=== PATIENT | male | born 1955 | race Asian ===

== ENCOUNTER 2020-03-06 13:58 | Inpatient (IN) | payer MEDICAID, OTHER ==
[~2020-03-06] VITALS: Ht 185.4 cm; Wt 55.2 kg
[~2020-03-06 13:58] MED LIST: LISI5TAB7 PO; METO-93 PO; RIVA20TA PO
--- NOTE | 2020-03-06 14:25 | NUR ---
pt presents to ED seeking eval of chronic venous stasis lesions to bilateral LE, states these have been present for years, pt has chronic sob, states this is at baseline today. pt breathing with pursed lips, regular, mildly labored. pt's only complaint is bilateral leg pain. pt is a&o, able to speak in full sentences without taking breath. all monitors in place, pt is in afib rate 140-150, no pvcs noted. pt states "I've had afib for 4-5 years now, I stopped taking medicine for it 2 or 3 years ago, I don't have insurance." Pt seen and examined by [facility] Ch, bertha and EDTA for PIV start and labwork. call light in reach.
[2020-03-06] MEDS ORDERED: MORPHINE SULFATE 4 MG/ML, 1ML IVPush ONE (14:30)
[2020-03-06] MEDS ORDERED: SODIUM CHLORIDE 0.9% 1,000ML IVBOLUS ONE (14:30)
[2020-03-06] MEDS ORDERED: SODIUM CHLORIDE FLUSH 10ML SYR IVF ONE (14:30)
[2020-03-06] MEDS ORDERED: FUROSEMIDE 40 MG/4 ML IVPush ONE (14:30)
--- NOTE | 2020-03-06 14:34 | NUR ---
pt instructed to provide clean catch ua, pt refusing to attempt, stating "I just went before I got here." this RN will continue to prompt.
[2020-03-06] MEDS ORDERED: MORPHINE SULFATE 4 MG/ML, 1ML ONE (14:39)
[2020-03-06] MEDS ORDERED: FUROSEMIDE 40 MG/4 ML ONE (14:39)
[2020-03-06] MEDS ORDERED: DILTIAZEM 5 MG/ML, 5ML ONE ×2 (14:39→15:26)
[2020-03-06] MEDS ORDERED: GABA300C PO (14:41)
[2020-03-06] MEDS ORDERED: IBUP-1902 PO (14:41)
[2020-03-06] MEDS ORDERED: ASPI-515 PO (14:41)
[2020-03-06 14:49] LABS: BASOPHILS # (AUTO) 0.01 x10^3/uL (0-0.1); BASOPHILS % (AUTO) 0 % (0-1); EOSINOPHILS # (AUTO) 0.01 x10^3/uL (0-0.4); EOSINOPHILS % (AUTO) 0 % (1-7); LYMPHOCYTES # (AUTO) 0.81 x10^3/uL (1-3.4); LYMPHOCYTES % (AUTO) 11 % (22-44); MD NO; MEAN CORPUSCULAR HEMOGLOBIN 33.9 pg (27.5-34.5); MEAN CORPUSCULAR HGB CONC 33.2 g/dL (33.2-36.2); MEAN CORPUSCULAR VOLUME 102.4 fL (81-97); MEAN PLATELET VOLUME 6.5 fL (7.4-10.4); MONOCYTES # (AUTO) 0.47 x10^3/uL (0.2-0.8); MONOCYTES % (AUTO) 7 % (2-9); NEUTROPHILS # (AUTO) 5.94 x10^3/uL (1.8-6.8); NEUTROPHILS % (AUTO) 82 % (42-75); PLATELET COUNT 197 x10^3/uL (130-400); RED BLOOD COUNT 5.41 x10^6/uL (4.38-5.82); RED CELL DISTRIBUTION WIDTH 13.9 % (9.4-14.8)
[2020-03-06 15:00] LABS: ALBUMIN 3.2 g/dL (3.4-5.0); ANION GAP 8 mmol/L (5-15); CALCIUM 8.8 mg/dL (8.5-10.1); CHLORIDE 106 mmol/L (98-107)
[2020-03-06] MEDS ORDERED: DILTIAZEM 5 MG/ML, 5ML IVPush ONE (15:00)
--- NOTE | 2020-03-06 15:00 | NUR ---
REPORT GIVEN TO KENNY MAURICE AT BEDSIDE. PT A&O, RESPS EVEN AND UNLABORED. DILTIAZEM PUSHED SLOWLY OVER 5 MIN. PT REMAINS IN AFIB RATE 115-120, NO ECTOPY NOTED. PT'S RESPS EVEN AND UNLABORED, ABLE TO SPEAK IN FULL SENTENCES WITHOUT TAKING A BREATH. AWAITING LAB AND CXR RESULTS AT THIS TIME, PT REMINDED TO PROVIDE URINE WHEN ABLE.
--- NOTE | 2020-03-06 15:01 | NUR ---
REPORT FROM KENNY NORTON. PT CARE RESPONSIBILITIES ASSUMED. PT UPDATED ON PLAN OF CARE. VERBALIZES UNDERSTANDING. DENIES ANY NEEDS OR CONCERNS, CALL LIGHT IN REACH.
[2020-03-06 15:05] LABS: ALANINE AMINOTRANSFERASE 32 U/L (12-78); ALKALINE PHOSPHATASE 65 U/L (45-117); BILIRUBIN,TOTAL 1.1 mg/dL (0.2-1.0); CREATININE 1.04 mg/dL (0.7-1.3); TOTAL PROTEIN 7.9 g/dL (6.4-8.2); TROPONIN I 0.095 ng/mL (0.000-0.045)
[2020-03-06 15:16] LABS: INTERNATIONAL NORMALIZED RATIO 1.02 (0.93-1.1); PROTHROMBIN TIME 10.5 Seconds (9.6-11.5)
[2020-03-06] MEDS ORDERED: DILTIAZEM 5 MG/ML, 5ML IVPush STA (15:18)
[2020-03-06] MEDS ORDERED: VANCOMYCIN PER PHARMACY MC PRN ×2 (15:30→18:00)
[2020-03-06] MEDS ORDERED: ASPIRIN 81 MG TABLET CHEW PO ONE (15:30)
[2020-03-06] MEDS ORDERED: VANCOMYCIN 2,500 MG in SODIUM CHLORIDE 0.9% 500 ML IV ONE (15:30)
[2020-03-06 15:35] LABS: MICROSCOPIC AUTO
[2020-03-06] MEDS ORDERED: ASPIRIN 81 MG TABLET CHEW ONE (15:39)
--- NOTE | 2020-03-06 15:40 | NUR ---
PT UP TO BEDSIDE FOR URINAL USE. REQUIRES ONLY SETUP ASSISTANCE. DENIES ANY FURTHER NEEDS AT THIS TIME, CALL LIGHT IN REACH.
[2020-03-06] MEDS: DILTIAZEM 125 MG in SODIUM CHLORIDE 0.9% 100 ML IV SCH (15:58)
--- NOTE | 2020-03-06 16:20 | NUR ---
PT READY AND AWAITING TRANSPORT AT THIS TIME. REPORT CALLED TO KENNY WILKINSON.
[2020-03-06 16:46] VITALS: BP 146/97
[2020-03-06] MEDS: morphine SULFATE 10 MG/ML, 1ML IVPush PRN (17:30)
[2020-03-06] MEDS ORDERED: hydrALAzine 20 MG/ML, 1ML IVPush PRN (17:30)
[2020-03-06] MEDS ORDERED: PROMETHAZINE 25 MG/ML, 1ML IM PRN (17:30)
[2020-03-06] MEDS ORDERED: ONDANSETRON 2MG/ML, 2ML IVPush PRN (17:30)
[2020-03-06] MEDS ORDERED: ACETAMINOPHEN 325 MG TABLET PO PRN (17:30)
[2020-03-06] MEDS ORDERED: ONDANSETRON ODT 4 MG PO PRN (17:30)
[2020-03-06] MEDS ORDERED: BISACODYL 10 MG SUPP PR PRN (17:30)
[2020-03-06 18:09] LABS: FREE T4 (FREE THYROXINE) 1.06 ng/dL (0.76-1.46)
[2020-03-06] MEDS ORDERED: PHARMACOKINETIC CONSULTATION MC ONE (18:30)
[2020-03-06] MEDS ORDERED: PHARMACOKINETIC MONITORING MC PRN (18:30)
[2020-03-06] MEDS: AMPICILLIN/SULBACTAM 3 GM in SODIUM CHLORIDE 0.9% 100 ML IV SCH (20:20)
[2020-03-06] MEDS: OXYcodone IR 5MG TABLET PO PRN ×2 (20:26→20:57)
[2020-03-06] MEDS ORDERED: ALBUTEROL HFA 90 MCG/SPRAY INH PRN (21:30)
[2020-03-06 21:37] VITALS: BP 150/108
[2020-03-07] VITALS (7 sets, daily range): BP systolic 116–163; BP diastolic 68–98
[2020-03-07] MEDS: OXYcodone IR 5MG TABLET PO PRN ×5 (01:42→20:06)
[2020-03-07] MEDS: AMPICILLIN/SULBACTAM 3 GM in SODIUM CHLORIDE 0.9% 100 ML IV SCH ×4 (01:44→21:09)
[2020-03-07] MEDS: DILTIAZEM 125 MG in SODIUM CHLORIDE 0.9% 100 ML IV SCH ×2 (03:03→16:56)
[2020-03-07 04:54] LABS: BASOPHILS # (AUTO) 0.03 x10^3/uL (0-0.1); BASOPHILS % (AUTO) 0 % (0-1); EOSINOPHILS # (AUTO) 0.01 x10^3/uL (0-0.4); EOSINOPHILS % (AUTO) 0 % (1-7); LYMPHOCYTES # (AUTO) 0.95 x10^3/uL (1-3.4); LYMPHOCYTES % (AUTO) 10 % (22-44); MD NO; MEAN CORPUSCULAR HEMOGLOBIN 33.9 pg (27.5-34.5); MEAN CORPUSCULAR HGB CONC 32.8 g/dL (33.2-36.2); MEAN CORPUSCULAR VOLUME 103.5 fL (81-97); MEAN PLATELET VOLUME 6.8 fL (7.4-10.4); MONOCYTES # (AUTO) 1.06 x10^3/uL (0.2-0.8); MONOCYTES % (AUTO) 11 % (2-9); NEUTROPHILS # (AUTO) 7.54 x10^3/uL (1.8-6.8); NEUTROPHILS % (AUTO) 79 % (42-75); PLATELET COUNT 176 x10^3/uL (130-400); RED BLOOD COUNT 5.08 x10^6/uL (4.38-5.82); RED CELL DISTRIBUTION WIDTH 13.9 % (9.4-14.8)
[2020-03-07] MEDS ORDERED: HEPARIN 5,000 UNITS/ML, 1ML IV ONE (05:00)
[2020-03-07 05:11] LABS: CALCIUM 8.4 mg/dL (8.5-10.1); CHLORIDE 100 mmol/L (98-107)
[2020-03-07 05:15] LABS: ALANINE AMINOTRANSFERASE 29 U/L (12-78); ALBUMIN 3.2 g/dL (3.4-5.0); ANION GAP 10 mmol/L (5-15); CHOLESTEROL, TOTAL 191 mg/dL (140-239); CREATININE 0.88 mg/dL (0.7-1.3); TOTAL PROTEIN 7.6 g/dL (6.4-8.2); TRIGLYCERIDES 81 mg/dL (50-200); VLDL CHOLESTEROL 16 mg/dL (0-25)
[2020-03-07 05:17] LABS: ALKALINE PHOSPHATASE 60 U/L (45-117); BILIRUBIN,TOTAL 1.8 mg/dL (0.2-1.0); CHOL/HDL RATIO 2.6; HDL CHOL % 38 % (26-37); HDL CHOLESTEROL (DIRECT) 73 mg/dL (40-60); LDL CHOLESTEROL,CALCULATED 102 mg/dL (54-169); LDL/HDL RATIO 1.4 (0.5-3.0)
[2020-03-07] MEDS: HEPARIN 25,000 UNITS/250ML PMX 250 ML IV PRN (06:18)
[2020-03-07] MEDS: morphine SULFATE 10 MG/ML, 1ML IVPush PRN (08:26)
[2020-03-07] MEDS ORDERED: FUROSEMIDE 20 MG/2 ML IV ONE (09:00)
[2020-03-07] MEDS ORDERED: ASPIRIN 325 MG TABLET EC PO SCH (09:00)
[2020-03-07] MEDS: VANCOMYCIN 2,000 MG in SODIUM CHLORIDE 0.9% 500 ML IV SCH (09:56)
[2020-03-07] MEDS ORDERED: MAGNESIUM SULFATE PMX 2GM/50ML 50 ML IV ONE (10:30)
[2020-03-07] MEDS: FENTANYL PF 100 MCG/2ML IVPush PRN ×2 (11:21→15:39)
[2020-03-07] MEDS: FUROSEMIDE 20 MG/2 ML IV SCH (14:59)
[2020-03-07] MEDS: METOPROLOL TARTRATE 25 MG TAB PO SCH (16:56)
[2020-03-07] MEDS: HEPARIN 5,000 UNITS/ML, 1ML IV PRN (21:07)
[2020-03-08] MEDS: FENTANYL PF 100 MCG/2ML IVPush PRN (01:43)
[2020-03-08] MEDS: HEPARIN 25,000 UNITS/250ML PMX 250 ML IV PRN (02:34)
[2020-03-08] MEDS: OXYcodone IR 5MG TABLET PO PRN ×3 (02:54→17:04)
[2020-03-08] MEDS: AMPICILLIN/SULBACTAM 3 GM in SODIUM CHLORIDE 0.9% 100 ML IV SCH ×4 (02:59→21:25)
[2020-03-08 03:41] LABS: BASOPHILS # (AUTO) 0.03 x10^3/uL (0-0.1); BASOPHILS % (AUTO) 1 % (0-1); EOSINOPHILS # (AUTO) 0.02 x10^3/uL (0-0.4); EOSINOPHILS % (AUTO) 0 % (1-7); LYMPHOCYTES # (AUTO) 0.74 x10^3/uL (1-3.4); LYMPHOCYTES % (AUTO) 10 % (22-44); MD NO; MEAN CORPUSCULAR HEMOGLOBIN 34.5 pg (27.5-34.5); MEAN CORPUSCULAR HGB CONC 33.6 g/dL (33.2-36.2); MEAN CORPUSCULAR VOLUME 102.9 fL (81-97); MEAN PLATELET VOLUME 6.8 fL (7.4-10.4); MONOCYTES # (AUTO) 0.75 x10^3/uL (0.2-0.8); MONOCYTES % (AUTO) 10 % (2-9); NEUTROPHILS # (AUTO) 6.04 x10^3/uL (1.8-6.8); NEUTROPHILS % (AUTO) 80 % (42-75); PLATELET COUNT 172 x10^3/uL (130-400); RED BLOOD COUNT 4.83 x10^6/uL (4.38-5.82); RED CELL DISTRIBUTION WIDTH 13.8 % (9.4-14.8)
[2020-03-08 03:43] LABS: ANION GAP 10 mmol/L (5-15); CALCIUM 8.8 mg/dL (8.5-10.1); CHLORIDE 98 mmol/L (98-107); CREATININE 1.04 mg/dL (0.7-1.3)
[2020-03-08] MEDS: VANCOMYCIN 2,000 MG in SODIUM CHLORIDE 0.9% 500 ML IV SCH ×2 (04:09→22:57)
[2020-03-08] MEDS: DILTIAZEM 125 MG in SODIUM CHLORIDE 0.9% 100 ML IV SCH (05:29)
[2020-03-08] MEDS: METOPROLOL TARTRATE 25 MG TAB PO SCH ×2 (05:35→16:59)
[2020-03-08 06:42] VITALS: BP 110/74
[2020-03-08] MEDS: FUROSEMIDE 20 MG/2 ML IV SCH (09:26)
[2020-03-08] MEDS: DILTIAZEM 240 MG CAP.ER.24H PO SCH (09:27)
[2020-03-08] MEDS: GABAPENTIN 100 MG CAPSULE PO SCH ×3 (09:27→21:26)
[2020-03-08] MEDS: LISINOPRIL 5 MG TABLET PO SCH (09:31)
[2020-03-08] MEDS: NICOTINE 7 MG/24 HR PATCH.TD24 TD SCH (11:25)
[2020-03-08] MEDS: DOCUSATE 100 MG CAPSULE PO PRN (11:26)
[2020-03-08] MEDS ORDERED: HYDROmorphone 1 MG/ML, 1ML INJ IV PRN (11:30)
[2020-03-08 12:18] VITALS: BP 127/84
[2020-03-08] MEDS: HEPARIN 5,000 UNITS/ML, 1ML IV PRN ×2 (13:22→20:15)
[2020-03-08] MEDS ORDERED: FENTANYL PF 100 MCG/2ML ONE (14:19)
[2020-03-08] MEDS ORDERED: NALOXONE 1 MG/ML, 2ML ONE (14:19)
[2020-03-08] MEDS ORDERED: FLUMAZENIL 0.1 MG/1 ML, 5ML ONE (14:19)
[2020-03-08] MEDS ORDERED: MIDAZOLAM 1 MG/ML, 5ML ONE (14:19)
[2020-03-08 16:50] VITALS: BP 122/82
[2020-03-08 18:46] VITALS: BP 101/67
[2020-03-09] MEDS: OXYcodone IR 5MG TABLET PO PRN ×3 (00:27→20:06)
[2020-03-09] MEDS: HEPARIN 25,000 UNITS/250ML PMX 250 ML IV PRN (01:37)
[2020-03-09 03:17] VITALS: BP 122/73
[2020-03-09] MEDS: HEPARIN 5,000 UNITS/ML, 1ML IV PRN (03:26)
[2020-03-09] MEDS: AMPICILLIN/SULBACTAM 3 GM in SODIUM CHLORIDE 0.9% 100 ML IV SCH ×3 (05:02→19:22)
[2020-03-09 05:21] LABS: BASOPHILS # (AUTO) 0.02 x10^3/uL (0-0.1); BASOPHILS % (AUTO) 0 % (0-1); EOSINOPHILS # (AUTO) 0.08 x10^3/uL (0-0.4); EOSINOPHILS % (AUTO) 1 % (1-7); LYMPHOCYTES # (AUTO) 0.99 x10^3/uL (1-3.4); LYMPHOCYTES % (AUTO) 13 % (22-44); MD NO; MEAN CORPUSCULAR HEMOGLOBIN 34.1 pg (27.5-34.5); MEAN CORPUSCULAR HGB CONC 32.6 g/dL (33.2-36.2); MEAN CORPUSCULAR VOLUME 104.7 fL (81-97); MEAN PLATELET VOLUME 6.9 fL (7.4-10.4); MONOCYTES # (AUTO) 1.07 x10^3/uL (0.2-0.8); MONOCYTES % (AUTO) 14 % (2-9); NEUTROPHILS # (AUTO) 5.29 x10^3/uL (1.8-6.8); NEUTROPHILS % (AUTO) 71 % (42-75); PLATELET COUNT 160 x10^3/uL (130-400); RED BLOOD COUNT 4.52 x10^6/uL (4.38-5.82); RED CELL DISTRIBUTION WIDTH 13.5 % (9.4-14.8)
[2020-03-09] MEDS: FENTANYL PF 100 MCG/2ML IVPush PRN (05:32)
[2020-03-09 05:33] LABS: ANION GAP 2 mmol/L (5-15); CALCIUM 9.1 mg/dL (8.5-10.1); CHLORIDE 102 mmol/L (98-107)
[2020-03-09 05:36] LABS: CREATININE 0.85 mg/dL (0.7-1.3)
[2020-03-09] MEDS: METOPROLOL TARTRATE 25 MG TAB PO SCH (06:08)
[2020-03-09 07:50] VITALS: BP 107/75
[2020-03-09] MEDS: DILTIAZEM 240 MG CAP.ER.24H PO SCH (08:22)
[2020-03-09] MEDS: GABAPENTIN 100 MG CAPSULE PO SCH ×3 (08:22→20:06)
[2020-03-09] MEDS: FUROSEMIDE 20 MG/2 ML IV SCH (08:22)
[2020-03-09] MEDS: LISINOPRIL 5 MG TABLET PO SCH (08:23)
[2020-03-09] MEDS: NICOTINE 7 MG/24 HR PATCH.TD24 TD SCH (11:00)
[2020-03-09] MEDS: APIXABAN 5 MG TABLET PO SCH ×2 (11:35→20:06)
[2020-03-09] MEDS: DOCUSATE 100 MG CAPSULE PO PRN (11:35)
[2020-03-09 13:56] VITALS: BP 134/85
[2020-03-09] MEDS: VANCOMYCIN 2,000 MG in SODIUM CHLORIDE 0.9% 500 ML IV SCH (16:14)
[2020-03-09] MEDS: METOPROLOL TARTRATE 50 MG TAB PO SCH (17:45)
[2020-03-09 20:01] VITALS: BP 98/70
[2020-03-09] MEDS: POLYETHYLENE GLYCOL 17 GM PACKET PO PRN (20:06)
[2020-03-10 00:32] VITALS: BP 114/84
[2020-03-10] MEDS: OXYcodone IR 5MG TABLET PO PRN ×4 (00:36→21:39)
[2020-03-10] MEDS: AMPICILLIN/SULBACTAM 3 GM in SODIUM CHLORIDE 0.9% 100 ML IV SCH ×3 (01:30→13:03)
[2020-03-10] MEDS: FENTANYL PF 100 MCG/2ML IVPush PRN (02:48)
[2020-03-10] MEDS: METOPROLOL TARTRATE 50 MG TAB PO SCH ×2 (05:41→17:34)
[2020-03-10 06:47] VITALS: BP 107/76
[2020-03-10] MEDS: LISINOPRIL 5 MG TABLET PO SCH (08:41)
[2020-03-10] MEDS: GABAPENTIN 100 MG CAPSULE PO SCH ×3 (08:41→21:29)
[2020-03-10] MEDS: DOCUSATE 100 MG CAPSULE PO PRN (08:41)
[2020-03-10] MEDS: APIXABAN 5 MG TABLET PO SCH ×2 (08:42→21:29)
[2020-03-10] MEDS ORDERED: FUROSEMIDE 40 MG TABLET PO SCH (09:00)
[2020-03-10] MEDS: VANCOMYCIN 2,000 MG in SODIUM CHLORIDE 0.9% 500 ML IV SCH (09:23)
[2020-03-10] MEDS: NICOTINE 7 MG/24 HR PATCH.TD24 TD SCH (09:44)
[2020-03-10 12:56] VITALS: BP 127/78
[2020-03-10] MEDS: PIPERACILLIN/TAZO/PMX 3.375GM 50 ML IV SCH ×2 (16:57→21:30)
[2020-03-10] MEDS: POLYETHYLENE GLYCOL 17 GM PACKET PO PRN (18:24)
[2020-03-10 19:09] VITALS: BP 101/73
[2020-03-11] MEDS ORDERED: MELATONIN 5 MG TABLET PO PRN
[2020-03-11 01:18] VITALS: BP 109/80
[2020-03-11] MEDS: PIPERACILLIN/TAZO/PMX 3.375GM 50 ML IV SCH ×4 (03:40→22:14)
[2020-03-11] MEDS: OXYcodone IR 5MG TABLET PO PRN ×3 (03:40→17:43)
[2020-03-11] MEDS: VANCOMYCIN 2,000 MG in SODIUM CHLORIDE 0.9% 500 ML IV SCH (04:39)
[2020-03-11] MEDS: METOPROLOL TARTRATE 50 MG TAB PO SCH ×2 (04:42→17:39)
[2020-03-11 04:43] VITALS: BP 110/78
[2020-03-11 06:54] LABS: BASOPHILS # (AUTO) 0.02 x10^3/uL (0-0.1); BASOPHILS % (AUTO) 0 % (0-1); EOSINOPHILS # (AUTO) 0.07 x10^3/uL (0-0.4); EOSINOPHILS % (AUTO) 1 % (1-7); LYMPHOCYTES # (AUTO) 0.83 x10^3/uL (1-3.4); LYMPHOCYTES % (AUTO) 13 % (22-44); MD NO; MEAN CORPUSCULAR HEMOGLOBIN 34.5 pg (27.5-34.5); MEAN CORPUSCULAR HGB CONC 33.2 g/dL (33.2-36.2); MEAN CORPUSCULAR VOLUME 103.8 fL (81-97); MEAN PLATELET VOLUME 6.9 fL (7.4-10.4); MONOCYTES # (AUTO) 0.99 x10^3/uL (0.2-0.8); MONOCYTES % (AUTO) 15 % (2-9); NEUTROPHILS # (AUTO) 4.74 x10^3/uL (1.8-6.8); NEUTROPHILS % (AUTO) 71 % (42-75); PLATELET COUNT 175 x10^3/uL (130-400); RED BLOOD COUNT 4.72 x10^6/uL (4.38-5.82); RED CELL DISTRIBUTION WIDTH 13.4 % (9.4-14.8)
[2020-03-11 07:09] LABS: ANION GAP 7 mmol/L (5-15); CHLORIDE 98 mmol/L (98-107)
[2020-03-11 07:12] LABS: CREATININE 1.14 mg/dL (0.7-1.3)
[2020-03-11 07:13] VITALS: BP 104/68
[2020-03-11] MEDS ORDERED: MORPHINE SULFATE 4 MG/ML, 1ML IVPush PRN (08:00)
[2020-03-11] MEDS: GABAPENTIN 100 MG CAPSULE PO SCH ×3 (10:14→22:12)
[2020-03-11] MEDS: APIXABAN 5 MG TABLET PO SCH ×2 (10:14→22:13)
[2020-03-11] MEDS: FUROSEMIDE 20 MG TABLET PO SCH (10:14)
[2020-03-11] MEDS: LISINOPRIL 5 MG TABLET PO SCH (10:14)
[2020-03-11] MEDS: DOCUSATE 100 MG CAPSULE PO PRN (10:14)
[2020-03-11] MEDS: NICOTINE 7 MG/24 HR PATCH.TD24 TD SCH (10:30)
[2020-03-11 12:22] VITALS: BP 119/82
[2020-03-11 19:38] VITALS: BP 108/77
[2020-03-12 02:28] VITALS: BP 111/63
[2020-03-12] MEDS: OXYcodone IR 5MG TABLET PO PRN (03:12)
[2020-03-12] MEDS: PIPERACILLIN/TAZO/PMX 3.375GM 50 ML IV SCH ×2 (03:48→10:00)
[2020-03-12] MEDS ORDERED: VANCOMYCIN 2,000 MG in SODIUM CHLORIDE 0.9% 500 ML IV SCH (04:00)
[2020-03-12] MEDS: METOPROLOL TARTRATE 50 MG TAB PO SCH (05:25)
[2020-03-12 05:30] VITALS: BP 142/83
[2020-03-12 07:08] VITALS: BP 125/89
[2020-03-12] MEDS ORDERED: OXYC5TAB3 PO (08:24)
[2020-03-12] MEDS ORDERED: LEVO750T6 PO (08:24)
[2020-03-12] MEDS ORDERED: LISI5TAB7 PO (08:24)
[2020-03-12] MEDS ORDERED: FURO20TA3 PO (08:24)
[2020-03-12] MEDS ORDERED: GABA300C PO (08:24)
[2020-03-12] MEDS ORDERED: APIX5TAB PO (08:24)
[2020-03-12] MEDS ORDERED: ALBU18HF INH (08:24)
[2020-03-12] MEDS ORDERED: ASPI-515 PO (08:24)
[2020-03-12] MEDS ORDERED: METO50TA82 PO (08:24)
[2020-03-12] MEDS: NICOTINE 7 MG/24 HR PATCH.TD24 TD SCH (10:22)
[2020-03-12] MEDS: FUROSEMIDE 20 MG TABLET PO SCH (10:22)
[2020-03-12] MEDS: LISINOPRIL 5 MG TABLET PO SCH (10:22)
[2020-03-12] MEDS: APIXABAN 5 MG TABLET PO SCH (10:22)
[2020-03-12] MEDS: GABAPENTIN 100 MG CAPSULE PO SCH (10:22)
== END 2020-03-12 11:14 | disposition home or self-care (01) | DRG 602 ==
LOC: ED 15:14 → EDIP 15:32 → 5SO 16:51 → DCLOUNGE 03-12 10:55
PROVIDERS: ADMIT Hospitalist; ATTEND Hospitalist
DX: L03.116 Cellulitis of left lower limb (principal); J96.01 Acute respiratory failure with hypoxia; I50.23 Acute on chronic systolic (congestive) heart failure; I42.9 Cardiomyopathy, unspecified; I48.20 Chronic atrial fibrillation, unspecified; L97.229 Non-pressure chronic ulcer of left calf with unspecified severity; Z79.01 Long term (current) use of anticoagulants; L03.115 Cellulitis of right lower limb; Z87.891 Personal history of nicotine dependence; Z91.19 Patient's noncompliance with other medical treatment and regimen; F12.10 Cannabis abuse, uncomplicated; I34.0 Nonrheumatic mitral (valve) insufficiency; I87.2 Venous insufficiency (chronic) (peripheral); M71.21 Synovial cyst of popliteal space [Baker], right knee
CPT/HCPCS: 36415; 71045; 80048; 80053; 80061; 80202; 81001; 83036; 83605; 83735; 83880; 84145; 84439; 84443; 84484; 85025; 85520; 85610; 87040; 87070; 87077; 87086; 87147; 87186; 87205; 93005; 93306; 93922; 93970; 96361; 96374; 96375; 99291; G0378; J0295; J1644; J1940; J2250; J2543; J3010; J3370; J2270; J2310; J3475; J7030; J7040

== ENCOUNTER → 2020-03-18 | Outpatient (CLI) | payer OTHER ==
[~2020-03-18] MED LIST changes: +ALBU18HF INH; +APIX5TAB PO; +ASPI-515 PO; +FURO20TA3 PO; +GABA300C PO; +IBUP-1902 PO; +LEVO750T6 PO; +METO50TA82 PO; +OXYC5TAB3 PO
== END | disposition home or self-care (01) ==
LOC: WOUND 08:37
PROVIDERS: ATTEND Family Medicine
DX: I87.313 Chronic venous hypertension (idiopathic) with ulcer of bilateral lower extremity (principal); L97.822 Non-pressure chronic ulcer of other part of left lower leg with fat layer exposed; L97.812 Non-pressure chronic ulcer of other part of right lower leg with fat layer exposed; L97.105 Non-pressure chronic ulcer of unspecified thigh with muscle involvement without evidence of necrosis; I50.23 Acute on chronic systolic (congestive) heart failure; I42.9 Cardiomyopathy, unspecified; I48.91 Unspecified atrial fibrillation; I87.2 Venous insufficiency (chronic) (peripheral); K21.9 Gastro-esophageal reflux disease without esophagitis; I42.2 Other hypertrophic cardiomyopathy; F17.200 Nicotine dependence, unspecified, uncomplicated; F12.10 Cannabis abuse, uncomplicated; Z79.01 Long term (current) use of anticoagulants
CPT/HCPCS: 11042; 11045; 99215

== ENCOUNTER → 2020-03-25 | Outpatient (CLI) | payer OTHER | END | disposition home or self-care (01) | LOC: WOUND 08:16 | PROVIDERS: ATTEND Family Medicine | DX: I87.313 Chronic venous hypertension (idiopathic) with ulcer of bilateral lower extremity (principal); L97.822 Non-pressure chronic ulcer of other part of left lower leg with fat layer exposed; L97.812 Non-pressure chronic ulcer of other part of right lower leg with fat layer exposed; L97.105 Non-pressure chronic ulcer of unspecified thigh with muscle involvement without evidence of necrosis; I11.0 Hypertensive heart disease with heart failure; I50.23 Acute on chronic systolic (congestive) heart failure; I48.20 Chronic atrial fibrillation, unspecified; K21.9 Gastro-esophageal reflux disease without esophagitis; I42.2 Other hypertrophic cardiomyopathy; F17.200 Nicotine dependence, unspecified, uncomplicated; F12.10 Cannabis abuse, uncomplicated; Z79.01 Long term (current) use of anticoagulants | CPT/HCPCS: 97597; 97598 ==

== ENCOUNTER → 2020-04-01 | Outpatient (CLI) | payer OTHER | END | disposition home or self-care (01) | LOC: WOUND 08:27 | PROVIDERS: ATTEND Family Medicine | DX: I87.333 Chronic venous hypertension (idiopathic) with ulcer and inflammation of bilateral lower extremity (principal); L97.812 Non-pressure chronic ulcer of other part of right lower leg with fat layer exposed; L97.822 Non-pressure chronic ulcer of other part of left lower leg with fat layer exposed; L97.105 Non-pressure chronic ulcer of unspecified thigh with muscle involvement without evidence of necrosis; K21.9 Gastro-esophageal reflux disease without esophagitis; I42.2 Other hypertrophic cardiomyopathy; I11.0 Hypertensive heart disease with heart failure; I50.33 Acute on chronic diastolic (congestive) heart failure; I48.20 Chronic atrial fibrillation, unspecified; F17.200 Nicotine dependence, unspecified, uncomplicated; Z79.01 Long term (current) use of anticoagulants | CPT/HCPCS: 97597; 97598 ==

== ENCOUNTER → 2020-04-08 | Outpatient (CLI) | payer OTHER | END | disposition home or self-care (01) | LOC: WOUND 08:35 | PROVIDERS: ATTEND Family Medicine | DX: I87.333 Chronic venous hypertension (idiopathic) with ulcer and inflammation of bilateral lower extremity (principal); L97.812 Non-pressure chronic ulcer of other part of right lower leg with fat layer exposed; L97.822 Non-pressure chronic ulcer of other part of left lower leg with fat layer exposed; L97.105 Non-pressure chronic ulcer of unspecified thigh with muscle involvement without evidence of necrosis; I42.2 Other hypertrophic cardiomyopathy; K21.9 Gastro-esophageal reflux disease without esophagitis; I11.0 Hypertensive heart disease with heart failure; I50.33 Acute on chronic diastolic (congestive) heart failure; I48.20 Chronic atrial fibrillation, unspecified; F17.200 Nicotine dependence, unspecified, uncomplicated; Z79.01 Long term (current) use of anticoagulants | CPT/HCPCS: 97597; 97598 ==

== ENCOUNTER → 2020-04-22 | Outpatient (CLI) | payer OTHER | END | disposition home or self-care (01) | LOC: WOUND 08:19 | PROVIDERS: ATTEND Family Medicine | DX: I87.333 Chronic venous hypertension (idiopathic) with ulcer and inflammation of bilateral lower extremity (principal); L97.812 Non-pressure chronic ulcer of other part of right lower leg with fat layer exposed; L97.822 Non-pressure chronic ulcer of other part of left lower leg with fat layer exposed; L97.105 Non-pressure chronic ulcer of unspecified thigh with muscle involvement without evidence of necrosis; I42.2 Other hypertrophic cardiomyopathy; K21.9 Gastro-esophageal reflux disease without esophagitis; I11.0 Hypertensive heart disease with heart failure; I50.43 Acute on chronic combined systolic (congestive) and diastolic (congestive) heart failure; I48.20 Chronic atrial fibrillation, unspecified; F17.200 Nicotine dependence, unspecified, uncomplicated; Z79.01 Long term (current) use of anticoagulants; Z79.82 Long term (current) use of aspirin | CPT/HCPCS: 97597; 97598 ==

== ENCOUNTER 2020-04-29 09:06 | Outpatient (CLI) | payer OTHER | END 2020-04-29 23:59 | disposition home or self-care (01) | LOC: WOUND 09:06 | PROVIDERS: ATTEND Family Medicine | DX: I87.333 Chronic venous hypertension (idiopathic) with ulcer and inflammation of bilateral lower extremity (principal); L97.812 Non-pressure chronic ulcer of other part of right lower leg with fat layer exposed; L97.822 Non-pressure chronic ulcer of other part of left lower leg with fat layer exposed; L97.105 Non-pressure chronic ulcer of unspecified thigh with muscle involvement without evidence of necrosis; I42.2 Other hypertrophic cardiomyopathy; K21.9 Gastro-esophageal reflux disease without esophagitis; I11.0 Hypertensive heart disease with heart failure; I50.43 Acute on chronic combined systolic (congestive) and diastolic (congestive) heart failure; I48.20 Chronic atrial fibrillation, unspecified; I48.91 Unspecified atrial fibrillation; F17.200 Nicotine dependence, unspecified, uncomplicated; Z79.01 Long term (current) use of anticoagulants; Z79.82 Long term (current) use of aspirin | CPT/HCPCS: 11042; 11045 ==

== ENCOUNTER → 2020-05-06 | Outpatient (CLI) | payer OTHER | END | disposition home or self-care (01) | LOC: WOUND 08:51 | PROVIDERS: ATTEND Family Medicine | DX: I87.333 Chronic venous hypertension (idiopathic) with ulcer and inflammation of bilateral lower extremity (principal); L97.822 Non-pressure chronic ulcer of other part of left lower leg with fat layer exposed; L97.812 Non-pressure chronic ulcer of other part of right lower leg with fat layer exposed; L97.105 Non-pressure chronic ulcer of unspecified thigh with muscle involvement without evidence of necrosis; I42.2 Other hypertrophic cardiomyopathy; I11.0 Hypertensive heart disease with heart failure; I50.43 Acute on chronic combined systolic (congestive) and diastolic (congestive) heart failure; I48.20 Chronic atrial fibrillation, unspecified; K21.9 Gastro-esophageal reflux disease without esophagitis; F17.290 Nicotine dependence, other tobacco product, uncomplicated; Z79.01 Long term (current) use of anticoagulants; Z79.82 Long term (current) use of aspirin | CPT/HCPCS: 97597; 97598 ==

== ENCOUNTER → 2020-05-13 | Outpatient (CLI) | payer OTHER | END | disposition home or self-care (01) | LOC: WOUND 09:35 | PROVIDERS: ATTEND Family Medicine | DX: I87.333 Chronic venous hypertension (idiopathic) with ulcer and inflammation of bilateral lower extremity (principal); L97.812 Non-pressure chronic ulcer of other part of right lower leg with fat layer exposed; L97.822 Non-pressure chronic ulcer of other part of left lower leg with fat layer exposed; L97.105 Non-pressure chronic ulcer of unspecified thigh with muscle involvement without evidence of necrosis; I42.2 Other hypertrophic cardiomyopathy; K21.9 Gastro-esophageal reflux disease without esophagitis; I11.0 Hypertensive heart disease with heart failure; I50.41 Acute combined systolic (congestive) and diastolic (congestive) heart failure; I48.20 Chronic atrial fibrillation, unspecified; F17.290 Nicotine dependence, other tobacco product, uncomplicated; Z79.01 Long term (current) use of anticoagulants; Z79.82 Long term (current) use of aspirin | CPT/HCPCS: 97597; 97598 ==